=== PATIENT | female | born 1985 | race Caucasian/White ===

== ENCOUNTER 2024-08-18 19:31 | Emergency (ER) | payer OTHER, SELFPAY ==
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
[2024-08-18 19:34] VITALS: BP 147/84; PULSE 104; RESP 16; TEMP 36.6; O2SAT 100
--- OUTSIDE RECORDS SUMMARY | 2024-08-18 19:37 | XMS_ITS | Continuity of Care Document ---
Author Organization [facility] Address [address] [place] [address] [place] [address] Phone Care Team Providers Care Industrial Machine Assembler Name Role Phone Samy Cevallos MD Unavailable Unavailable Allergies, Adverse Reactions, Alerts Substance Reaction Status Criticality No Known Allergies Active No Inform ation Medications Medication Instructions Dosage Effective Dates (start - stop) Status Comments Tylenol-Codeine #3 300 mg-30 mg tablet take 1 tablet by oral route every 6 hours as needed as needed - Active PRN for pain, avoid driving or operate machines Neurontin 300 mg capsule take 1 capsule by oral route 3 times every day 300 MG - Active avoid driving o operate machines cyclobenzaprine 10 mg tablet take 1 tablet by oral route 2 times every day as needed 10 MG - Active PRN for pain , avoid driving or operate machines Procedures Procedure Date PREV VISIT, NEW, AGE 18-39 Advance Directives Directive Yes / No Effective Date File Name No Information Encounters Encounter Description Practice Location Reason(s) For Visit Diagnoses Date Provider Providers Copied on Encounter [facility], [address] [place], [id number], tel:[phone] [facility] No Information Mart Pablo. [address] [facility] [place], [id number], [place]. tel:[phone] PREV VISIT, NEW, AGE 18-39 [facility], [address] [place], [id number], [place] tel:[phone] [facility] Medicine [email or web address] (chief complaint)p sychical (chief complaint) Encntr for general adult medical exam w/o abnormal findings Mart Pablo. [address], [address], [place], [place], [id number], . tel:[phone] Referring Provider: Yanni Fairbanks [address], [place], [place], [id number]. tel:[phone] Family History Family Member Type Diagnosis Age At Onset Father Problem (finding) Alive and well Mother Problem (finding) Alive and well Payers Payer name Insurance type Covered libertarian ID Authoriza tion(s) No Information Social History Type Description Quantity Date Captured Comments Sex Male Smoking Status No Information Chief Complaint And Reason For Visit No Information Plan Of Treatment Date Type Action Status Goal Tobacco cessation counseling completed Goal Special diet education compl eted Referral Ordered: Physical Therapy (related to Encntr for general adult medical exam w/o abnormal findings) ordered Referral Referred To: Physical Therapy Ordered: Referrals: Physical Therapy. Evaluate and treat ordered History Of Present Illness Encounter Date Complaint History Of Prese nt Illness [email or web address] Pt has chronic l ow back pain for 2-3 years. pt initially injured her low back pain from lifting 2016. Pt has been having low back pain since then. Pt c/o bilateral sciatica and also she feels bilateral leg numbness and tingling. pt denies any leg weakness Pt had normal lumbar x ray recently. Pt never did PT. Her insurance keeps denying her MRI due to lack of PT. Pt states that she has 10/10 pain Pt has been taking neurontin and zanaflex but not helping with her pain. Pt had MRi done 2016 which showed L4-5 disc protrusion with mild spinal stenosis. psychical Pt needs annual physical Pt c/o weight gain and chronic low back pain. Pt is not very active pt gained 20-30 pounds during last year Instructions Date Instruction Additional Infor mation Special diet education Related t o Body mass index (BMI) 38.0-38.9, adult Perform monthly self breast examinations. Related to Encntr for general adult medical exam w/o abnormal findings May-09-2019 Quit smoking. Related to Encnt r for general adult medical exam w/o abnormal findings Assessments Type Assessment Date No Information
--- OUTSIDE RECORDS SUMMARY | 2024-08-18 19:37 | XMS_ITS | Clinical Summary ---
Author Organization [facility] Address [address] [place] [address] Phone Care Team Providers Care Baton Twirler Name Role Phone Bebe Mae MD Primary Care Provider [phone] Dot Wagoner APRN, ROAD MARKER Unavailable Allergies No known active allergies Medications No known medications Active Problems Problem Noted Date Diagnosed Date Mild obstructive sleep apnea 03/22/2024 Class 3 severe obesity due t o excess calories without serious comorbidity with body mass index (BMI) of 40.0 to 44.9 in adult 03/22/2024 Snoring 03/22/2024 Personal history of tobacco use 03/22/2024 Social History Tobacco Use Types Packs/Day Years Used Date Smoking Tobacco: Every Day Cigarettes Smokeless Tobacco: Never Tobacco Cessation:Ready to Q uit: No; Counseling Given: No Alcohol Use Standard Drinks/Week Comments No 0 (1 standard drink = 0.6 oz pur e alcohol) Comments No Sex and Gender Information Value Date Recorded Sex Assigned at Female 01/09/2024 11:00 PM LEACH TANK TENDER Legal Sex Female 10:37 PM CDT Gender Identity Female 01/09/2024 11:00 PM LEACH TANK TENDER Sexual Orientation Not on file Last Filed Vital Signs Vital Sign Reading Time Taken Comments Blood Pressure 122/60 03/22/2024 1:37 PM LEACH TANK TENDER Pulse 103 03/22/2024 1:37 PM LEACH TANK TENDER Temperature 36.4 C (97.5 F) 03/22/2024 1:37 PM LEACH TANK TENDER Respiratory Rate 14 03/22/2024 1:37 PM LEACH TANK TENDER Oxygen Saturation 98% 03/22/2024 1:37 PM LEACH TANK TENDER Inhaled Oxygen Concentration - - Weight 112.3 kg (247 lb 8 oz) 03/22/2024 1:37 PM LEACH TANK TENDER Height 165.1 cm (5' 5) 03/22/2024 1:37 PM LEACH TANK TENDER Body Mass Index 41.19 03/22/2024 1:37 PM LEACH TANK TENDER Plan of Treatment Upcoming Encounters Date Type Department Care Team ([facility] st Contact Info) Description 08/23/2024 4:00 PM CDT Office Visit [facility] - Pulmonology & [facility] Medicine - [place] [address] [place] [address] Dot Wagoner, ODELL, ROAD MARKER [address] [address] Health Maintenance Due Date Last Done Comments Hepatitis C Virus (HCV) Screening 1987 Human Papillomavirus (HPV) Immunization (1 - 3-dose series) 2002 Hepatitis B Immunization (1 of 3 - 19+ 3-dose series) 2006 Pneumococcal Immunization Combined (1 of 2 - PCV) 2006 Pap Smear 2008 Cervical Cancer Screening (CCS) 2017 HPV/Cotest 2017 SARS-COV-2 Immunization (1 - season) 2023 Influenza Immunization (Seas on Ended) 2024 12/27/2020, 01/17/2020 Respiratory Syncytial Virus (RSV) Immunization (Adult) (1 - 1-dose 75+ series) 2062 DTaP/Tdap/Td Immunization Discontinued 2022, 03/03/2012 TdaP Immunization Completed 05/13/2022, 03/03/2012 Meningococcal Immunization (ACWY) Aged Out No longer eligible based on patient's age to complete this topic Rotavirus Immunization Aged Out No lo nger eligible based on patient's age to complete this topic Insurance MEDICAID [facility] Care Teams Baton Twirler Relationship Specialty Start Date End Date Bebe Mae MD [address] [address] PCP - General Family Medicine 08/22/22 Dot Wagoner APRN, ROAD MARKER [address] [address] Nurse Practitioner Advanced Practice Nurse 03/22/24
--- OUTSIDE RECORDS SUMMARY | 2024-08-18 19:37 | XMS_ITS | Data Portability ---
Author Organization [facility] Address [address] [place] [address] Care Team Providers Care Chart Picker Name Role Phone BEBE MAE Family Medicine Unavailable Assessment No assessment recorded. Plan of Treatment Reminders Order Date Submit Date Provider Last Modified By Organization Details Last Modified Time Details Appointments ANY 15 2024 02:00P M BEBE MAE MD Not available Not available Not available Lab cytology report, thin prep, smear or scraping, cervical or vaginal 2024 025 [facility], [address] [place] [address], [facility], [place], [address], 06/28/2024 14:47:03 TSH, ultra-sen sitive, serum 2024 025 [facility], [address] [facility], [facility], [place], [address], 06/25/2024 10:43:29 HbA1c (hemoglob in A1c), blood 2024 025 [facility], [address] [place] [address], [facility], [place], [address], 06/25/2024 10:43:30 lipid panel, serum 2024 025 [facility], [address] [facility], [facility], [place], [address], 06/25/2024 10:43:26 CMP, serum or plasma 2024 025 [facility], [address] [facility], [facility], [place], [address], 06/25/2024 10:43:27 CBC 2024 025 [facility], [address] [place] [address] 2, [place], [address], 06/25/2024 10:43:31 Referral dermatolo gist referral - cyst of left jawline; initially started pimple-li ke but has grown to 3mm x 3mm in size in about 3 months; non-tende r and mobile 2023 024 fabricio Crabtree MD, [address] [facility] [address], [place], [address], 05/05/2024 10:14:27 Procedures None recorded. Surgeries None recorded. Imaging home sleep study - snoring with witnessed apneic episodes; [place] [facility] Scale of 1; STOP-BANG score of 3; neck circumfer ence 39.5 cm 2023 024 [facility], [address] [place], [address], 02/18/2024 11:47:23 Medication Orders Zepbound 2.5 mg/0.5 mL subcutane ous pen injector 2024 025 [email or web address] [id number], [address] [place], [address], 06/24/2024 18:23:10 ibuprofen [address] [facility] [id number], [address] [place], [address], 06/03/2024 17:29:07 cyclobenz aprine 5 mg tablet [address] [facility] ([place] [id number], [address] [place], [address], 06/03/2024 17:29:07 acetamino phen ER 650 mg tablet,ex tended release [address] [facility] ([place] [id number], [address] [place], [address], 06/03/2024 17:29:06 nicotine 21 mg/24 hr daily transderm al patch [address] [facility] ([place] [place]acy [facility][id number], [address] [place], [address], 02/02/2024 16:12:12 Patient TargetsNo targets recorded. Patient Instructions Encounter Date Encounter Id Patient Instructions Last Modified By Organization Details Last Modified Time 06/24/2024 [id number] A healthy lifestyle: care instructions [email or web address] Not available 06/24/2024 15:02:54 Reason for Referral [employer] [place] Referral for E pidermoid cyst of skin of face cyst of left jawline; initially started pimple-like but has grown to 3mm x 3mm in size in about 3 months; non-tender and mobile Referring Physician: Bebe Mae, Family Medicine, Encounter Date: 02/02/2024 Results Created Date Observation Date Name Description Value Unit Range Abnormal Flag Note LastModifiedBy Organization Detail LastModifiedTime 05/14/1905/14/2022 HEMOG LOBIN A1C hemoglobin A1C 5.5 % 4.8-5. 6 Predi abete s: 5.7 - 6.4 Diabe bea: >6.4 Glyce jacque contr ol for adult s with diabe bea: <7.0 Not Available [facility] ([facility]) [address] [facility], [place], [address], 05/14/2022 06:37:34 05/14/19 23 05/14/2022 VITAM IN D, 25-HY DROXY vitamin D, 25-hydroxy 19.6 NG/mL 30.0-1 00.0 below low normal Vitam in D defic iency has been defin ed by the Insti tutrufina of Medic ine and an Endoc kermit Navarro ty pract ice guide line as a level of serum 25-OH vitam in D less than 20 ng/mL (1,2) . The Endoc rine Socie ty went on to furth er defin e vitam in D insuf ficie ncy as a level betwe en 21 and 29 ng/mL (2). 1. IOM (Inst itute of Medic ine). 2009. Dieta ry refer ence intromy es for calci um and D. Gulshan kellogg [place]: [employer] [facility] [employer] . 2. Holic k MF, Binkl ey [place], Bisch off-F errar i FITZPATRICK, et al. Evalu ation , treat ment, and preve ntion of vitam in D defic iency : an Endoc [facility]ine [facility] clin[facility] nam pract ice guide line. JCEM. 2010; 96(7) :1911 -30. Not Available [facility] ([facility]) [address] [facility], [place], [address], 05/14/2022 06:37:35 05/14/19 23 05/14/2022 COMP. METAB OLIC PANEL (14) glucose 88 mg/dL 65-99 ANION GP 17.0 mmol/ L N OSMOL 285.0 mOsM/ L N REFER ENCE RANGE : 275.0 -301. 0 Not Available [facility] [address] [place], [address], 05/14/2022 14:36:48 05/14/19 23 05/14/2022 COMP. METAB OLIC PANEL (14) BUN 9 mg/dL 8-26 Not Available [facility] [address] [place], [address], 05/14/2022 14:36:48 05/14/19 23 05/14/2022 COMP. METAB OLIC PANEL (14) creatinine 0.57 mg/dL 0.50-1 .40 Not Available [facility] [address] [place], [address], 05/14/2022 14:36:48 05/14/19 23 05/14/2022 COMP. METAB OLIC PANEL (14) eGFR 121 mL/mi n/1.7 3 >=60 Not Available [facility] [address] [place], [address], 05/14/2022 14:36:48 05/14/19 23 05/14/2022 COMP. METAB OLIC PANEL (14) BUN/creatini ne ratio 15.6 Not Available [facility] [address] [place], [address], 05/14/2022 14:36:48 05/14/19 23 05/14/2022 COMP. METAB OLIC PANEL (14) sodium 144.0 mmol/ L 136.0- 144.0 Not Available [facility] [address] [place] [address], [address], 05/14/2022 14:36:48 05/14/19 23 05/14/2022 COMP. METAB OLIC PANEL (14) potassium 4.4 mmol/ L 3.5-5. 3 Not Available [facility] [address] [place] [address], [address], 05/14/2022 14:36:48 05/14/19 23 05/14/2022 COMP. METAB OLIC PANEL (14) chloride 107 mmol/ l 101-11 1 Not Available [facility] [address] [place] [address], [address], 05/14/2022 14:36:48 05/14/19 23 05/14/2022 COMP. METAB OLIC PANEL (14) carbon dioxide, total 24.9 mmol/ L 21.0-3 2.0 Not Available [facility] [address] [place] [address], [address], 05/14/2022 14:36:48 05/14/19 23 05/14/2022 COMP. METAB OLIC PANEL (14) calcium 9.6 mg/dL 8.2-10 .0 Not Available [facility] [address] [place] [address], [address], 05/14/2022 14:36:48 05/14/19 23 05/14/2022 COMP. METAB OLIC PANEL (14) protein, total 6.8 g/dL 6.7-8. 2 Not Available [facility] [address] [place] [address], [address], 05/14/2022 14:36:48 05/14/19 23 05/14/2022 COMP. METAB OLIC PANEL (14) albumin 4.1 g/dL 3.5-5. 5 Not Available [facility] [address] [place] [address], [address], 05/14/2022 14:36:48 05/14/19 23 05/14/2022 COMP. METAB OLIC PANEL (14) globulin, total 2.7 g/dL 1.5-4. 5 Not Available [facility] [address] [place] [address], [address], 05/14/2022 14:36:48 05/14/19 23 05/14/2022 COMP. METAB OLIC PANEL (14) A/G ratio 1.5 Not Available [facility] [address] [place], [address], 05/14/2022 14:36:48 05/14/19 23 05/14/2022 COMP. METAB OLIC PANEL (14) bilirubin, total 0.2 mg/dL 0.0-1. 2 Not Available [facility] [address] [place] [address], [address], 05/14/2022 14:36:48 05/14/19 23 05/14/2022 COMP. METAB OLIC PANEL (14) alkaline phosphatase 115.4 IU/L 42.0-1 21.0 Not Available [facility] [address] [place] [address], [address], 05/14/2022 14:36:48 05/14/19 23 05/14/2022 COMP. METAB OLIC PANEL (14) AST (SGOT) 15.1 U/L 10.0-4 2.0 Not Available [facility] [address] [place], [address], 05/14/2022 14:36:48 05/14/1905/14/2022 COMP. METAB OLIC PANEL (14) ALT (SGPT) 14.2 U/L 10.0-6 0.0 Not Available [facility] [address] [place], [address], 05/14/2022 14:36:48 05/14/19 23 05/14/2022 CBC WITH DIFFE RENTI AL/PL ATELE T WBC 9.7 K/uL 3.4-10 .8 Not Available [facility] [address] [place], [address], 05/14/2022 14:36:49 05/14/1905/14/2022 CBC WITH DIFFE RENTI AL/PL ATELE T RBC 4.8 M/uL 4.2-5. 4 Not Available [facility] [address] [place], [address], 05/14/2022 14:36:49 05/14/1905/14/2022 CBC WITH DIFFE RENTI AL/PL ATELE T hemoglobin 12.5 g/dL 11.5-1 5.5 Not Available [facility] [address] [place], [address], 05/14/2022 14:36:49 05/14/1905/14/2022 CBC WITH DIFFE RENTI AL/PL ATELE T hematocrit 40.9 % 36.0-4 8.0 Not Available [facility] [address] [place], [address], 05/14/2022 14:36:49 05/14/1905/14/2022 CBC WITH DIFFE RENTI AL/PL ATELE T MCV 85 fL 80-95 Not Available [facility] [address] [place], [address], 05/14/2022 14:36:49 05/14/1905/14/2022 CBC WITH DIFFE RENTI AL/PL ATELE T MCH 26 pg 27-32 below low normal Not Available [facility] [address] [place], [address], 05/14/2022 14:36:49 05/14/1905/14/2022 CBC WITH DIFFE RENTI AL/PL ATELE T MCHC 31 g/dL 32-36 below low normal Not Available [facility] [address] [place], [address], 05/14/2022 14:36:49 05/14/1905/14/2022 CBC WITH DIFFE RENTI AL/PL ATELE T RDW 14.5 % 11.5-1 4.5 Not Available [facility] [address] [place], [address], 05/14/2022 14:36:49 05/14/1905/14/2022 CBC WITH DIFFE RENTI AL/PL ATELE T platelets 364 K/uL 155-37 9 MPV 10.1 FL 8.9-1 2.7 N Not Available [facility] [address] [place], [address], 05/14/2022 14:36:49 05/14/1905/14/2022 CBC WITH DIFFE RENTI AL/PL ATELE T neutrophils 61.1 % 40.0-7 4.0 Not Available [facility] [address] [place], [address], 05/14/2022 14:36:49 05/14/1905/14/2022 CBC WITH DIFFE RENTI AL/PL ATELE T lymphs 22.6 % 14.0-4 6.0 Not Available [facility] [address] [place], [address], 05/14/2022 14:36:49 05/14/1905/14/2022 CBC WITH DIFFE RENTI AL/PL ATELE T monocytes 8.8 % 4.0-12 .0 Not Available [facility] [address] [place], [address], 05/14/2022 14:36:49 05/14/19 23 05/14/2022 CBC WITH DIFFE RENTI AL/PL ATELE T eos 6 % 0-5 above high normal Not Available [facility] [address] [place], [address], 05/14/2022 14:36:49 05/14/19 23 05/14/2022 CBC WITH DIFFE RENTI AL/PL ATELE T basos 0.7 % 0.0-1. 0 Not Available [facility] [address] [place], [address], 05/14/2022 14:36:49 05/14/19 23 05/14/2022 CBC WITH DIFFE RENTI AL/PL ATELE T neutrophils (absolute) 5.9 K/uL 1.4-7. 0 Not Available [facility] [address] [place], [address], 05/14/2022 14:36:49 05/14/19 23 05/14/2022 CBC WITH DIFFE RENTI AL/PL ATELE T lymphs (absolute) 2.2 K/uL 0.7-3. 1 Not Available [facility] [address] [place], [address], 05/14/2022 14:36:49 05/14/19 23 05/14/2022 CBC WITH DIFFE RENTI AL/PL ATELE T monocytes(ab solute) 0.9 K/uL 0.1-0. 9 Not Available [facility] [address] [place], [address], 05/14/2022 14:36:49 05/14/19 23 05/14/2022 CBC WITH DIFFE RENTI AL/PL ATELE T eos (absolute) 0.6 K/uL 0.0-0. 4 above high normal Not Available [facility] [address] [place], [address], 05/14/2022 14:36:49 05/14/1905/14/2022 CBC WITH DIFFE RENTI AL/PL ATELE T baso (absolute) 0.1 K/uL 0.0-0. 3 Not Available [facility] [address] [place], [address], 05/14/2022 14:36:49 05/14/19 23 05/14/2022 CBC WITH DIFFE RENTI AL/PL ATELE T immature granulocytes 1.1 % Not Available [facility] [address] [place], [address], 05/14/2022 14:36:49 05/14/19 23 05/14/2022 CBC WITH DIFFE RENTI AL/PL ATELE T immature grans (abs) 0.1 K/uL Not Available [facility] [address] [place], [address], 05/14/2022 14:36:49 05/14/1905/14/2022 CBC WITH DIFFE RENTI AL/PL ATELE T NRBC 0 % Not Available [facility] [address] [place], [address], 05/14/2022 14:36:49 05/14/1905/14/2022 LIPID PANEL cholesterol, total 168.8 mg/dL 140.0- 200.0 Not Available [facility] [address] [place], [address], 05/14/2022 14:36:48 05/14/1905/14/2022 LIPID PANEL triglyceride s 229 mg/dL <=150 above high normal Not Available [facility] [address] [place], [address], 05/14/2022 14:36:48 05/14/1905/14/2022 LIPID PANEL HDL cholesterol 30.9 mg/dL 40.0-1 00.0 below low normal Not Available [facility] [address] [place], [address], 05/14/2022 14:36:48 05/14/19 23 05/14/2022 LIPID PANEL VLDL cholesterol nam 45.80 mg/dL 5.00-4 0.00 above high normal Not Available [facility] [address] [place], [address], 05/14/2022 14:36:48 05/14/1905/14/2022 LIPID PANEL LDL chol calc ([facility]) 98.5 Not Available [facility] [address] [place], [address], 05/14/2022 14:36:48 05/14/1905/15/2022 IGP, APTIM A HPV, RFX 16/18 ,45 HPV aptima Positi ve negati ve abnormal This nucle ic acid ampli ficat ion test detec ts fourt een high- risk HPV types (16,1 8,31, 33,35 ,39,4 5,51, 52,56 ,58,5 9,66, 68) witho ut diffe renti ation . Not Available [facility] ([facility]) [address] [facility], [place], [address], 05/23/2022 16:02:05 05/14/1905/17/2022 IGP, APTIM A HPV, RFX 16/18 ,45 diagnosis: Commen t NEGAT RILEY FOR INTRA EPITH ELIAL GAVIN Matt OR LEYDI STEIN . Not Available [facility] ([facility]) [address] [facility], [place], [address], 05/23/2022 16:02:05 05/14/19 23 05/17/2022 IGP, APTIM A HPV, RFX 16/18 ,45 specimen adequacy: Commen t Satis facto ry for evalu ation . Endoc ervic al and/o r squam ous metap lasti c cells (endo cervi nam compo nent) are prese nt. Not Available [facility] ([facility]) [address] [place], [address], 05/23/2022 16:02:05 05/14/1905/17/2022 IGP, APTIM A HPV, RFX 16/18 ,45 clinician provided ICD10: Nery gray Z00.0 0 Z12.4 Z68.4 1 Not Available [facility] ([facility]) [address] [place], [address], 05/23/2022 16:02:05 05/14/1905/17/2022 IGP, APTIM A HPV, RFX 16/18 ,45 performed by: Clarita Hannah Not Available [facility] ([facility]) [address] [place], [address], 05/23/2022 16:02:05 05/14/1905/17/2022 IGP, APTIM A HPV, RFX 16/18 ,45 . . Not Available [facility] ([facility]) [address] [place], [address], 05/23/2022 16:02:05 05/14/1905/17/2022 IGP, APTIM A HPV, RFX 16/18 ,45 note: Nery gray The Pap smear is a scree madan test desig seth to aid in the detec tion of tonia ligna nt and malig nant condi tions of the uteri ne cervi x. It is not a diagn ostic proce dure and shoul d not be used as the sole means of detec ting cervi nam cance r. Both false -posi tive and false -nega tive repor ts do occur . Not Available [facility] ([facility]) [address] [place], [address], 05/23/2022 16:02:05 05/14/19 23 05/17/2022 IGP, APTIM A HPV, RFX 16/18 ,45 test methodology: Nery Cantu liqui d based ThinP rep(R ) pap test was scree seth with the use of an image guide kimberly jefferson. Not Available [facility] ([facility]) [address] [place], [address], 05/23/2022 16:02:05 05/14/19 23 05/17/2022 IGP, APTIM A HPV, RFX 16/18 ,45 HPV genotype reflex Commen t Ricky malhotra met, see HPV Genot ype resul ts. Not Available [facility] ([facility]) [address] [place], [address], 05/23/2022 16:02:05 05/14/19 23 05/20/2022 HPV GENOT YPES 16/18 ,45 HPV genotype 16 Negati ve negati ve Not Available [facility] ([facility]) [address] [place], [address], 05/23/2022 16:02:06 05/14/19 23 05/20/2022 HPV GENOT YPES 16/18 ,45 HPV genotype 18,45 Negati ve negati ve Not Available [facility] ([facility]) [address] [place], [address], 05/23/2022 16:02:06 09/18/1909/18/2022 VITAM IN D, 25-HY DROXY vitamin D, 25-hydroxy 31.3 NG/mL 30.0-1 00.0 Vitam in D defic iency has been defin ed by the Insti tutrufina of Medic ine and an Endoc rine Socie ty pract ice guide line as a level of serum 25-OH vitam in D less than 20 ng/mL (1,2) . The Endoc rine Socie ty went on to fur er defin e vitam in D insuf ficie ncy as a level betwe en 21 and 29 ng/mL (2). 1. IOM (Inst itute of Medic ine). 2010. Dieta ry refer ence luis es for calci um and D. Gulshan kellogg [place]: [employer] . 2. Federico k MF, Binkl ey [place], Bisch off-F errar i FITZPATRICK, et al. Evalu ation , treat ment, and preve ntion of vitam in D defic iency : an Endoc rine Socie ty clini nam pract ice guide line. JCEM. 2010; 96(7) :1911 -30. Not Available [facility] ([facility]) [address] [place], [address], 09/18/2022 06:37:28 06/25/19 25 06/25/2024 LIPID PANEL cholesterol, total 186 mg/dL 100-19 9 Not Available [facility] ([facility]) [address] [place], [address], 06/25/2024 10:43:26 06/25/19 25 06/25/2024 LIPID PANEL triglyceride s 134 mg/dL 0-149 Not Available [facility] [address] [place], [address], 06/25/2024 10:43:26 06/25/19 25 06/25/2024 LIPID PANEL HDL cholesterol 43 mg/dL >39 Not Available [facility] [address] [place], [address], 06/25/2024 10:43:26 06/25/19 25 06/25/2024 LIPID PANEL VLDL cholesterol nam 24 mg/dL 5-40 Not Available [facility] [address] [place], [address], 06/25/2024 10:43:26 06/25/19 25 06/25/2024 LIPID PANEL LDL chol calc ([facility]) 119 mg/dL 0-99 above high normal Not Available [facility] ([facility]) [address] [place], [address], 06/25/2024 10:43:26 06/25/19 25 06/25/2024 COMP. METAB OLIC PANEL (14) glucose 97 mg/dL 70-99 Not Available [facility] ([facility]) [address] [place], [address], 06/25/2024 10:43:27 06/25/19 25 06/25/2024 COMP. METAB OLIC PANEL (14) BUN 13 mg/dL 6-20 Not Available [facility] ([facility]) [address] [place], [address], 06/25/2024 10:43:27 06/25/19 25 06/25/2024 COMP. METAB OLIC PANEL (14) creatinine 0.58 mg/dL 0.57-1 .00 Not Available [facility] ([facility]) [address] [place], [address], 06/25/2024 10:43:27 06/25/19 25 06/25/2024 COMP. METAB OLIC PANEL (14) eGFR 119 mL/mi n/1.7 3 >59 Not Available [facility] ([facility]) [address] [place], [address], 06/25/2024 10:43:27 06/25/19 25 06/25/2024 COMP. METAB OLIC PANEL (14) BUN/creatini ne ratio 22 9-23 Not Available [facility] [address] [place], [address], 06/25/2024 10:43:27 06/25/19 25 06/25/2024 COMP. METAB OLIC PANEL (14) sodium 141 mmol/ L 134-14 4 Not Available [facility] ([facility]) [address] [place], [address], 06/25/2024 10:43:27 06/25/19 25 06/25/2024 COMP. METAB OLIC PANEL (14) potassium 4.1 mmol/ L 3.5-5. 2 Not Available [facility] ([facility]) [address] [facility], [place], [address], 06/25/2024 10:43:27 06/25/19 25 06/25/2024 COMP. METAB OLIC PANEL (14) chloride 104 mmol/ L 96-106 Not Available [facility] ([facility]) [address] [facility], [place], [address], 06/25/2024 10:43:27 06/25/19 25 06/25/2024 COMP. METAB OLIC PANEL (14) carbon dioxide, total 21 mmol/ L 20-29 Not Available [facility] ([facility]) [address] [facility] [place], [address], 06/25/2024 10:43:27 06/25/19 25 06/25/2024 COMP. METAB OLIC PANEL (14) calcium 9.5 mg/dL 8.7-10 .2 Not Available [facility] ([facility]) [address] [place], [address], 06/25/2024 10:43:27 06/25/19 25 06/25/2024 COMP. METAB OLIC PANEL (14) protein, total 6.7 g/dL 6.0-8. 5 Not Available [facility] ([facility]) [address] [facility] [place], [address], 06/25/2024 10:43:27 06/25/19 25 06/25/2024 COMP. METAB OLIC PANEL (14) albumin 4.3 g/dL 3.9-4. 9 Not Available [facility] ([facility]) [address] [place], [address], 06/25/2024 10:43:27 06/25/19 25 06/25/2024 COMP. METAB OLIC PANEL (14) globulin, total 2.4 g/dL 1.5-4. 5 Not Available [facility] ([facility]) [address] [place], [address], 06/25/2024 10:43:27 06/25/19 25 06/25/2024 COMP. METAB OLIC PANEL (14) bilirubin, total <0.2 mg/dL 0.0-1. 2 Not Available [facility] ([facility]) [address] [place], [address], 06/25/2024 10:43:27 06/25/1906/25/2024 COMP. METAB OLIC PANEL (14) alkaline phosphatase 143 IU/L 44-121 above high normal Not Available [facility] ([facility]) [address] [place], [address], 06/25/2024 10:43:27 06/25/19 25 06/25/2024 COMP. METAB OLIC PANEL (14) AST (SGOT) 18 IU/L 0-40 Not Available [facility] ([facility]) [address] [place], [address], 06/25/2024 10:43:27 06/25/19 25 06/25/2024 COMP. METAB OLIC PANEL (14) ALT (SGPT) 15 IU/L 0-32 Not Available [facility] ([facility]) [address] [place], [address], 06/25/2024 10:43:27 06/25/19 25 06/25/2024 TSH RFX ON ABNOR MAL TO FREE T4 TSH 3.480 uIU/m L 0.450- 4.500 Not Available [facility] ([facility]) [address] [place], [address], 06/25/2024 10:43:29 06/25/19 25 06/25/2024 HEMOG LOBIN A1C hemoglobin A1C 5.6 % 4.8-5. 6 Predi abete s: 5.7 - 6.4 Diabe bea: >6.4 Glyce jacque contr ol for adult s with diabe bea: <7.0 Not Available [facility] ([facility]) [address] [facility], [place], [address], 06/25/2024 10:43:30 06/25/1906/25/2024 CBC, PLATE LET, NO DIFFE RENTI AL WBC 10.5 x10e3 /uL 3.4-10 .8 Not Available [facility] ([facility]) [address] [facility], [place], [address], 06/25/2024 10:43:31 06/25/1906/25/2024 CBC, PLATE LET, NO DIFFE RENTI AL RBC 4.44 x10e6 /uL 3.77-5 .28 Not Available [facility] ([facility]) [address] [facility], [place], [address], 06/25/2024 10:43:31 06/25/1906/25/2024 CBC, PLATE LET, NO DIFFE RENTI AL hemoglobin 11.8 g/dL 11.1-1 5.9 Not Available [facility] ([facility]) [address] [facility], [place], [address], 06/25/2024 10:43:31 06/25/1906/25/2024 CBC, PLATE LET, NO DIFFE RENTI AL hematocrit 37.3 % 34.0-4 6.6 Not Available [facility] ([facility]) [address] [place], [address], 06/25/2024 10:43:31 06/25/1906/25/2024 CBC, PLATE LET, NO DIFFE RENTI AL MCV 84 fL 79-97 Not Available [facility] ([facility]) [address] [place], [address], 06/25/2024 10:43:31 06/25/19 25 06/25/2024 CBC, PLATE LET, NO DIFFE RENTI AL MCH 26.6 pg 26.6-3 3.0 Not Available [facility] ([facility]) [address] [place], [address], 06/25/2024 10:43:31 06/25/1906/25/2024 CBC, PLATE LET, NO DIFFE RENTI AL MCHC 31.6 g/dL 31.5-3 5.7 Not Available [facility] ([facility]) [address] [place], [address], 06/25/2024 10:43:31 06/25/1906/25/2024 CBC, PLATE LET, NO DIFFE RENTI AL RDW 13.8 % 11.7-1 5.4 Not Available [facility] ([facility]) [address] [place], [address], 06/25/2024 10:43:31 06/25/19 25 06/25/2024 CBC, PLATE LET, NO DIFFE RENTI AL platelets 366 x10e3 /uL 150-45 0 Not Available [facility] ([facility]) [address] [place], [address], 06/25/2024 10:43:31 06/25/1906/25/2024 IGP, APTIM A HPV, RFX 16/18 ,45 HPV aptima NEGATI VE negati ve This nucle ic acid ampli ficat ion test detec ts fourt een high- risk HPV types (16,1 8,31, 33,35 ,39,4 5,51, 52,56 ,58,5 9,66, 68) witho ut diffe renti ation . Not Available [facility] ([facility]) [address] [place], [address], 06/28/2024 14:47:03 06/25/1906/28/2024 IGP, APTIM A HPV, RFX 16/18 ,45 diagnosis: NERY RABAGO RILEY FOR INTRA EPITH ELIAL LESIO N OR LEYDI STEIN . Not Available [facility] ([facility]) [address] [place], [address], 06/28/2024 14:47:03 06/25/19 25 06/28/2024 IGP, APTIM A HPV, RFX 16/18 ,45 specimen adequacy: NERY Gray Satis facto ry for evalu ation . Endoc ervic al and/o r squam ous metap lasti c cells (endo cervi nam compo nent) are prese nt. Not Available [facility] ([facility]) [address] [place], [address], 06/28/2024 14:47:03 06/25/19 25 06/28/2024 IGP, APTIM A HPV, RFX 16/18 ,45 clinician provided ICD10: NERY Gray Z00.0 0 E66.8 12 Z12.4 Not Available [facility] ([facility]) [address] [place], [address], 06/28/2024 14:47:03 06/25/19 25 06/28/2024 IGP, APTIM A HPV, RFX 16/18 ,45 performed by: NERY De La Fuente and-Rosalind buenrostro , Cytol ogist (ASCP ) Not Available [facility] ([facility]) [address] [place], [address], 06/28/2024 14:47:03 06/25/19 25 06/28/2024 IGP, APTIM A HPV, RFX 16/18 ,45 . . Not Available [facility] ([facility]) [address] [place], [address], 06/28/2024 14:47:03 06/25/19 25 06/28/2024 IGP, APTIM A HPV, RFX 16/18 ,45 note: COMMEN T The Pap smear is a scree madan test desig seth to aid in the detec tion of tonia ligna nt and malig nant condi tions of the uteri ne cervi x. It is not a diagn ostic proce dure and shoul d not be used as the sole means of detec ting cervi nam cance r. Both false -posi tive and false -nega tive repor ts do occur . Not Available [facility] ([facility]) [address] [facility], [place], [address], 06/28/2024 14:47:03 06/25/1906/28/2024 IGP, APTIM A HPV, RFX 16/18 ,45 test methodology: NERY T This liqui d based ThinP rep(R ) pap test was scree seth with the use of an image guide d systrufina m. Not Available [facility] ([facility]) [address] [facility], [place], [address], 06/28/2024 14:47:03 06/25/19 25 06/28/2024 IGP, APTIM A HPV, RFX 16/18 ,45 HPV genotype reflex COMMEN T Crite marya not met, HPV Genot ype not perfo rmed. Not Available [facility] ([facility]) [address] [place], [address], 06/28/2024 14:47:03 02/18/20 24 02/18/2024 home sleep study No observ ation record ed. [facility] [address] [place], [address], 02/25/2024 13:38:24 Result Notes None recorded. Problems Name Problem SNOMED Code Status Onset Date Resolution Date Notes Provider Name and Address Organization Details Recorded Time Mixed anxiety and depressi ve disorder 404956423 Active 2017 doing fine without med Not Available [facility] 12:16:57 Chronic pain 52412635 Completed 201705/18/2018 Lowell Cai MD Attn: Accounting ,[address] [facility], [place], [address] , [place] [facility] 9 11:47:34 Smoker 77049123 Active 2017 BEBE MAE MD Attn: Accounting ,[address] [place], [address] , [facility] 3 16:19:02 Chronic back pain 301151253 Active 2018 Not Available [facility] 12:16:57 Menorrha chai 708774625 Active 2022 BEBE MAE MD Attn: Accounting ,[address] [place], [address] , [facility] - [facility] 3 16:18:58 Body mass index 40+ - severely obese 407838813 Active 2022 BEBE MAE MD Attn: Accounting ,[address] [place], [address] , [facility] - [facility] 3 16:18:56 Vitamin D deficien cy 29175181 Active 2022 BEBE MAE MD Attn: Accounting ,[address] [place], [address] , [facility] - [facility] 3 09:30:45 Human papillom avirus deoxyrib onucleic acid detected , high risk on cervical specimen 610588392 Active 2022 Repeat HPV testing in May 2023. BEBE MAE MD Attn: Accounting ,[address] [place], [address] , [place] [facility] 3 17:03:10 Problem Notes None recorded. Procedures Surgical History Date Name Laterality Status Provider Name and Address Organization Details Recorded Time 06/18/19 Suture/Staple removal completed BEBE MAE MD Attn: Accounting, [address] [place], [address], [place] [facility] 06/17/2022 15:54:29 05/29/19 Excision and closure completed BEBE MAE MD Attn: Accounting, [address] [facility], [place], [address], [place] [facility] 05/29/2022 20:27:29 12/26/19 13 Date of Last Pap Smear completed Mk Oleary RN [facility] 08/18/2017 15:08:53 03/03/19 11 Tubal Ligation completed Karen [facility] 08/14/2017 14:17:14 Cholecystectomy completed [facility] 08/14/2017 14:16:58 Imaging Results None recorded. Procedure Notes None recorded. Medical Equipment None Reported. Allergies No known drug allergies Medications Name Sig Start Date Stop Date Status Note LastModified by Organization Details LastModified Time venlafaxin e ER 75 mg capsule,ex tended release 24 hr Take 1 capsule every day by oral route. 05/18 completed Not Available Not Available Not Available ibuprofen 800 mg tablet TAKE 1 TABLET EVERY 8 HOURS BY ORAL ROUTE WITH MEAL(S) FOR 14 DAYS, FOR BACK PAIN. active Not Available Not Available No t Available ofloxacin 0.3 % eye drops INSTILL 1 DROP INTO AFFECTED EYE 4 TIMES A DAY 02/13 completed Not using Not Available Not Available Not Available tizanidine 4 mg tablet TAKE 1 TABLET BY MOUTH TWICE A DAY 05/13 completed Not Available Not Available Not Available benzonatat e 200 mg capsule TAKE 1 ORAL CAPSULE UP TO 3 TIMES A DAY NEEDED FOR COUGH. 02/01 completed Not Available Not Available Not Available hydrocodon e 5 mg-acetami nophen 325 mg tablet 08/14 completed Not Available Not Available Not Available meloxicam 15 mg tablet Take 1 tablet every day by oral route as needed. 05/13 completed Not Available Not Available Not Available sulfametho xazole 800 mg-trimeth oprim 160 mg tablet TAKE 1 TABLET BY MOUTH EVERY 12 HOURS FOR 7 DAYS 02/01 completed Not Available Not Available Not Available acetaminop hen ER 650 mg tablet,ext ended release Take 1 tablet every 8 hours by oral route for 14 days, for back pain. 2024 active Not Available Not Available Not Avai lable nicotine 21 mg/24 hr daily transderma l patch Apply 1 patch every day by transderm al route. active Not Available Not Available No t Available gabapentin 300 mg capsule Take 1 capsule every day by oral route at bedtime. 05/13 completed Not Available Not Available Not Available ergocalcif rain (vitamin D2) 1,250 mcg (50,000 unit) capsule TAKE 1 CAPSULE EVERY WEEK BY ORAL ROUTE. 02/01 completed Not Available Not Available Not Available lotepredno l etabonate 0.5 % eye drops,susp ension INSTILL 1 DROP INTO AFFECTED EYE 4 TIMES A DAY 02/13 completed not using Not Available Not Available Not Available methylpred nisolone 4 mg tablets in a dose pack TAKE 6 TABLETS ON DAY 1 DIRECTED ON PACKAGE AND DECREASE BY 1 TAB EACH DAY FOR A TOTAL OF 6 DAYS 02/01 completed Not Available Not Available Not Available naproxen 500 mg tablet TAKE 1 TABLET BY MOUTH EVERY 12 HOURS NEEDED 05/13 completed Not Available Not Available Not Available amoxicilli n 875 mg-potassi um clavulanat e 125 mg tablet TAKE 1 TABLET BY MOUTH TWICE A DAY FOR 7 DAYS 02/01 completed Not Available Not Available Not Available cyclobenza geovani 5 mg tablet TAKE 1 TABLET 3 TIMES A DAY BY ORAL ROUTE NEEDED FOR 14 DAYS, FOR BACK PAIN. active Not Available Not Available No t Available chlorhexid ine gluconate 0.12 % mouthwash SWISH FOR 30 SECONDS AND SPIT OUT 15 MUCOUS MEMBRANE MILLILITE RS TWICE A DAY AFTER BRUSHING TEETH. 02/01 completed Not Available Not Available Not Available Fluarix Quad (PF) 60 mcg (15 mcg x 4)/0.5 mL IM syringe ADM 0.5ML IM UTD 05/13 completed Not Available Not Available Not Available Zepbound 2.5 mg/0.5 mL subcutaneo us pen injector INJECT 2.5 MG EVERY WEEK BY SUBCUTANE OUS ROUTE FOR 28 DAYS, FOR SLEEP APNEA. 2024 active Not Available Not Available Not Avai lable Vitals Date Recorded Body height Body mass index (BMI) Body weight Body temperature Oxygen saturation Oxygen saturation in Arterial blood by Pulse oximetry Heart rate Systolic blood pressure Diastolic blood pressure Provider Name and Address Organization Details Last Updated DateTime 3 161.29 cm 43.1 kg/m2 735220. 37 g 97.7 [degF] 96 % 96 % 88 /min 103 mm[Hg] 72 mm[Hg] Felicitas Braga MA [facility] 3 15:33:07 Date Recorded Body height Body mass index (BMI) Body weight Oxygen saturation Oxygen saturation in Arterial blood by Pulse oximetry Heart rate Body temperature Respiratory rate Systolic blood pressure Diastolic blood pressure Provider Name and Address Organization Details Last Updated DateTime 5 165.1 cm 38.9 kg/m2 233358. 61 g 100 % 100 % 110 /min 98.6 [degF] 24 /min 127 mm[Hg] 78 mm[Hg] Dafne Loja MA [facility] 5 16:36:00 Date Recorded Body height Body mass index (BMI) Body weight Body temperature Oxygen saturation Oxygen saturation in Arterial blood by Pulse oximetry Heart rate Systolic blood pressure Diastolic blood pressure Provider Name and Address Organization Details Last Updated DateTime 3 161.29 cm 42.9 kg/m2 198201. 07 g 97.8 [degF] 98 % 98 % 84 /min 107 mm[Hg] 71 mm[Hg] Dafne Child MA [facility] 3 15:44:29 Date Recorded Body height Body mass index (BMI) Body weight Oxygen saturation Oxygen saturation in Arterial blood by Pulse oximetry Heart rate Body temperature Respiratory rate Systolic blood pressure Diastolic blood pressure Provider Name and Address Organization Details Last Updated DateTime 5 165.1 cm 39.4 kg/m2 037577. 39 g 98 % 98 % 101 /min 98.5 [degF] 20 /min 114 mm[Hg] 73 mm[Hg] Dafne Loja MA [facility] 5 14:31:59 Date Recorded Body weight Body mass index (BMI) Body height Oxygen saturation Oxygen saturation in Arterial blood by Pulse oximetry Heart rate Body temperature Systolic blood pressure Diastolic blood pressure Provider Name and Address Organization Details Last Updated DateTime 4 809668. 23 g 40.8 kg/m2 165.1 cm 98 % 98 % 88 /min 98.4 [degF] 109 mm[Hg] 75 mm[Hg] Dafne Loja MA [facility] 4 15:49:45 Social History Question Answer Notes LastModified by Organizat ion Details LastModified Time Tobacco Smoking Status Current Every Day Smoker Karen Luna [facility], [place] - [facility] 08/14/2017 14:13:19 Do You Have An Advance Directive? No [email or web address] Information not available 08/18/2017 Are You Blind Or Do You Have Difficulty Seeing? No Information not available 05/13/2022 What Is Your Level Of Caffeine Consumption? Heavy Coffee Daily Energy Drinks On The Weekend Information not available 05/13/2022 How Much Tobacco Do You Chew? None Information not available 08/14/2017 In The 14 Days Before Symptom Onset, Have You Had Close Contact With A Laboratory-confir med COVID-19 While That Case Was Ill? No Information not available 02/14/2020 In The 14 Days Before Symptom Onset, Have You Had Close Contact With A Person Who Is Under Investigation For COVID-19 While That Person Was Ill? No Information not available 02/14/2020 Have You Been To An Area Known To Be High Risk For COVID-19? No Information not available 02/14/2020 Are You Deaf Or Do You Have Serious Difficulty Hearing? No Information not available 05/13/2022 What Type Of Diet Are You Following? REGULAR Information not available 08/14/2017 Which Illicit Or Recreational Drugs Have You Used? Denies Information not available 08/14/2017 Education 11 Information no t available 08/14/2017 Are There Any Guns Present In Your Home? No Information not available 05/13/2022 Hard Of Hearing Or Deaf In One Or Both Ears? No [email or web address] Information not available 08/18/2017 Legally Blind In One Or Both Eyes? No [email or web address] Information no t available 08/18/2017 Marital Status Single Informatio n not available 05/13/2022 What Was The Date Of Your Most Recent Tobacco Screening? 06/03/2024 Information not available 06/03/2024 How Many Children Do You Have? 3 Information not available 05/13/2022 What Is Your Current Pack Years? 20-29packye ars Information not available 05/13/2022 Performs Monthly Self-breast Exam? Yes [email or web address] Information no t available 08/18/2017 Do You Use Protection During Sex? No Information not available 05/13/2022 What Is Your Relationship Status? Single Information not available 05/13/2022 Do You Use Your Seat Belt Or Car Seat Routinely? Yes Information not available 05/13/2022 Seat Belts Used Routinely Yes [email or web address] Information not available 08/18/2017 Are You Sexually Active? Yes Information not available 05/13/2022 Smoke Alarm In Home Yes Information not available 08/18/2017 Do You Have Smoke And Carbon Monoxide Detectors In Your Home? Yes Information not available 05/13/2022 At What Age Did You Start Smoking Tobacco? 16 Information not available 08/14/2017 Are You Passively Exposed To Smoke? Yes Information no t available 05/13/2022 How Much Tobacco Do You Smoke? 1 PPD Pack And A Half Daily Information not available 02/02/2024 General Stress Level High Information not available 02/14/2020 Do You Use Sunscreen Routinely? Yes [email or web address] Information not available 08/18/2017 Has Tobacco Cessation Counseling Been Provided? Yes Information not available 05/13/2022 On What Date Was Tobacco Cessation Counseling Provided? 06/03/2024 Information not available 06/03/2024 How Many Years Have You Smoked Tobacco? 21 Information not available 05/13/2022 Sex: Female Functional Status Question Answer Note LastModified by Organizat ion Details LastModified Time Do you use any illicit or recreational drugs? No Information not available 05/13/2022 Do you or have you ever used any other forms of tobacco or nicotine? Yes Information not available 05/13/2022 What is your level of alcohol consumption? Occasional Information not available 05/13/2022 Do you or have you ever used smokeless tobacco? Never used smokeless tobacco Information not available 02/14/2020 Are you currently employed? Yes Information not available 05/13/2022 Are you able to care for yourself? Yes Information not available 05/13/2022 What is your occupation? [employer] Information not available 05/13/2022 Do you or have you ever used e-cigarettes or vape? Former user of electronic cigarettes Information not available 05/13/2022 What is your exercise level? None Information not available 05/13/2022 Mental Status Question Answer Note LastModified by Organization D etails LastModified Time Do you feel stressed (tense, restless, nervous, or anxious, or unable to sleep at night)? SN2976-4 [email or web address] Information not available 06/17/2022 Family History Relationship Description Onset Age of this Age Resolved Age Notes LastModified by Organization Details LastModified Time Maternal Grandmother Malignant neoplasm of lung Not available 2017 14:12:11 Maternal Grandfather Heart disease Not available 2017 14:12:26 Unspecified Relation Malignant tumor of cervix Mother 's side Not available 08/14/2017 14:13:08 Medical History Condition Response Coronary Artery Disease N Other N Atrial Fibrillation N High Blood Pressure N Thyroid Problems N Kidney or Bladder Problems N Depression N COPD N Blood Clots N GI Problems N Skin Problems N Eating Disorder N Anemia N Heart Attack (MD) N Diabetes N Anxiety Disorder Y Muscle, Joint, or Bone Problems N Seizures/Epilepsy N Acid Reflux (GERD) N Cancer N Stroke N Allergies Y Asthma N ADHD N Substance Abuse N High Cholesterol N Hepatitis N Liver Disease N Schizophrenia N Headaches N Osteoporosis N Heart Failure N Gynecological History Statement/Question Response Abnormal Pap Y Flow Heavy Date of LMP 05/19/2024 STIs/STDs N HPV Vaccine N Duration of Flow (days) 5 Age at Menarche 13 Current Control Method Tubal Ligat ion Age at First Child 21 Frequency of Cycle (Q days) 30 Sexually Active? Y Menses Monthly Y Date of Last Pap Smear 12/25/2012 Sexual Problems? N LMP Approximate Obstetrics History GPAL:G 3 P 3 0 0 3 Type Value Multiple Births 0 Full Term 3 Induced 0 Spontaneous 0 Premature 0 Living 3 Ectopics 0 Total 3 Immunizations Vaccine Type Date Status Note Provider Nam e and Address Organization Details Recorded Time Influenza, split virus, quadrivalent, preservative 0 completed BEBE MAE MD Attn: Accounting,[address], [place], [address], [place] [facility] 06/24/2024 18:21:50 Influenza, split virus, quadrivalent, PF 1 completed BEBE MAE MD Attn: Accounting,[address], [place], [address], [place] [facility] 06/24/2024 18:21:50 Tdap 3 completed Felicitas Braga MA null, [place] [facility] 05/13/2022 16:30:47 Tdap 3 completed BEBE MAE MD Attn: Accounting,[address], [place], [address], [place] [facility] 05/13/2022 15:55:10 Past Encounters Encounter ID Performer Location Encounter Start Date Encounter Closed Date Diagnosis/Indication Diagnosis SNOMED-CT Code Diagnosis ICD10 Code Diagnosis Note [id number] MD Amber Vela (Adult Med) [address] [place] [address] 08/14/2017 13:39:05 08/18/2017 08:57:12 Mixed anxiety and depressive disorder 803820952 F41.8 start pt on venlafaxin eRefer to psychiatri st as wellpt is willing to see therapist Smoker 98646999 F17.200 Chronic back pain 357108 002 G89.29 check imagingpt was evaluated by back specialist and h/o back injury at work 2 yrs ago and had settled case per pt [id number] MD Amber Vela (Adult Med) [address] [place] [address] 11/12/2017 11:37:46 11/12/2017 15:02:46 Chronic pain 79781595 G89.29 pt did not do xray yet Mixed anxi ety and depressive disorder 190209107 F41.8 pt is noncomplia nt with venlafaxin eRefered to psychiatri st as well -did not see one yetpt did not make apt with therapist yet Chronic back pain 586760 002 G89.29 pt to bring old MRI report and pt to go for xraypt was evaluated by back specialist and h/o back injury at work 2 yrs ago and had settled case per pt [id number] MD Mirian Velahalto (Adult Med) [address] [place] [address] 05/18/2018 11:31:24 05/19/2018 09:50:49 Chronic back pain 016859541 G89.29 Had MRI in 2016 which showed small l4-5 central protrusion with mild spinal stenosis . Pt was evaluated by back specialist and h/o back injury at work 2 yrs ago and had settled case per ptpt declined to go for PT / xray -okAdd Tizanidine with mobic /gabapenti n Obesity 988481403 E66.09 healthy diet and exercise discussed with pt Mixed anxi ety and depressive disorder 932688785 F41.8 pt stopped venlafaxin e/doing fine without med Smoker 41315423 F17.200 Spinal jassi nosis of lumbar region 74761502 M48.061 As above [id number] MD Mirian Velahalto (Adult Med) [address] [place] [address] 02/14/2020 08:20:53 02/15/2020 09:18:23 Chronic back pain 671849426 G89.29 Had MRI in 2016 which showed small l4-5 central protrusion with mild spinal stenosis .Pt was evaluated by back specialist and h/o back injury at work 2 yrs ago and had settled case per ptpt agreed to go for PT / xray -okpt wants to go back on Tizanidine with mobic /gabapenti n .pt needs letter saying some restrictio ns for community service due to back pain. [id number] MD Amber JOSÉ (SENIOR QUALITY ASSURANCE ANALYST) [address] [place] [address] 05/13/2022 15:13:08 05/15/2022 13:59:38 Screening for malignant neoplasm of cervix 473313729 Z12.4 - Due for co-testing ; collected today Nicotine d ependence with current use 804743666 F17.200 - Encouraged cessation for overall health, as well as reducing risk of cardiovasc ular disease and cancer- Patient interested in nicotine replacemen t; patches prescribed today Body mass index 40+ - severely obese 486111336 Z68.41 - Discussed healthy behaviors, including eating a balanced diet and incorporat ing regular physical activity into day- Provided handout on healthy lifestyle- Will screen for diabetes with A1c Adult [facility] th examination 539651416 Z00.00 - Reviewed risks for cardiovasc ular disease, infection, and cancer; ordered screening tests as appropriat e Menorrhagia 571574828 N9 2.0 - Patient interested in hormonal options to decrease heaviness of menstrual bleeding- Provided Reproducti ve Access handout on hormonal IUD and counseled patient on its indication for heavy menstrual bleeding- Patient to call for appointmen t if interested in IUD; recommende d returning when on period for ease of placement [id number] MD Amber JOSÉ (SENIOR QUALITY ASSURANCE ANALYST) [address] [place] [address] 05/21/2022 15:19:24 05/24/2022 09:56:17 Mass of neck 164562657 R22.1 L03.221 - Suspect infected epidermoid cyst; consider also abscess- Recommende d warm compresses for 20 minutes at a time 3-4 times daily and ibuprofen as needed for pain and inflammati on- Will also treat for superficia l cellulitis with Bactrim- Return to clinic in 1 week for re-evaluat ion and possible cyst excision vs abscess I&D [id number] MD Amber JOSÉ (SENIOR QUALITY ASSURANCE ANALYST) [address] [place] [address] 05/28/2022 15:19:36 05/30/2022 08:59:14 Epidermoid cyst of skin of back 294831963 L72.0 - Partial removal of cyst wall- Patient advised that cyst will likely return; will refer to dermatolog y when that occurs- Return to clinic in 10 days for suture removal [id number] MD Amber JOSÉ (SENIOR QUALITY ASSURANCE ANALYST) [address] [place] [address] 06/17/2022 15:14:49 06/18/2022 14:39:06 Removal of sutures done [id number] 89052 Z48.02 - Sutures removed without incident [id number] MD Amber JOSÉ (SENIOR QUALITY ASSURANCE ANALYST) [address] [place] [address] 02/02/2024 15:40:07 02/06/2024 14:28:07 Sleep apnea 35079031 G47.30 - Suspected THOR with snoring and witnessed apenic episodes- Home sleep study ordered Nicotine d ependence with current use 813031927 F17.200 - Encouraged cessation for overall health, as well as reducing risk of cardiovasc ular disease and cancer- Refilled home nicotine patches 21 mg daily- Recommende d choosing a quit date. Will touch base at annual wellness visit in May Epidermoid cyst of skin of face 496676630 L72.0 - Suspected epidermoid cyst on left side of face- Referred to dermatolog y for further evaluation and treatment [id number] MD Amber JOSÉ (SENIOR QUALITY ASSURANCE ANALYST) [address] [place] [address] 06/03/2024 16:25:38 06/04/2024 11:46:35 Chronic back pain 129265684 M54.9 - Discussed importance of pain control for the next 2 weeks. Medication s for multimodal pain control prescribed as below. Recommende d also over-the-c ounter lidocaine patches for 12 hours nightly. Recommende d TENS unit use with cheat sheet on pad placement given to patient.- Patient unable to go to physical therapy at this time- Return to clinic in 2-4 weeks for re-evaluat ion Positive s creening for depression on PHQ-9 (Patient Health Questionnaire 9) 0194723413 35414 Z13.31 - Reports high score due to losing job and being stressed about finances [id number] MD Amber JOSÉ (SENIOR QUALITY ASSURANCE ANALYST) [address] [place] [address] 06/24/2024 14:18:25 06/29/2024 14:20:21 Human papillomavirus deoxyribonucleic acid detected, high risk on cervical specimen 752569946 Z12.4 - Due for co-testing ; collected today Obese class II [id number] 1 23849 E66.812 - Provided handout on healthy lifestyle- F/u TSH and A1c to rule out thyroid disease and diabetes/p rediabetes Obstructiv e sleep apnea syndrome 83801936 G47.33 E66.812 Z68.39 - THOR on CPAP- Zepbound ordered to further improve THOR, as well as gain additional benefits of weight loss and management of dyslipidem ia (high VLDL and low HDL on 05/2022). Discussed side effects, R/B/A. No absolute contraindi cations to medication (medullary thyroid cancer or MEN2 syndrome). RTC in 4 weeks to evaluate tolerance to medication . General ex amination of patient 371667421 Z00.00 - Reviewed risks for cardiovasc ular disease, infection, and cancer; ordered screening tests as appropriat e Health Concerns Section Related Observation LastModified by Organization Detai ls LastModified Time None Recorded Concern Status LastModified by Organization Details LastModified Time None Recorded Advance Directives Directive N: Payers Insurance Date Sequence Insurance Name Policy Number Policy Ames Covered Member ID Ames Member ID Guarantor Name 07/20/2024 1 [facility] (MEDICAID HMO) [id number] Pao McCjamison [id number] Pao Klarissa Notes Date Note Type Note Provider Name and Address Organization Details Recorded Time 05/28/2022 text/html Back nodule- Has been using warm compresses and taking hot showers- Feels like the nodule is coming to a head- Almost done with antibiotic course- Mostly has discomfort when laying down due to pressure on the nodule- Would like nodule removed today BEBE MAE MD Attn: Accounting,[address] [place], [address], [facility] 05/29/2022 20:29:48 06/17/2022 text/html Suture removal- Epidermoid cyst partially removed 05/28/22- Patient unable to come back within 10 day window due to testing positive for COVID the week of 06/05/22- No concerns about sutures BEBE MAE MD Attn: [address]ing[address] [place], [address], [facility] 06/17/2022 15:55:24 02/02/2024 text/html Sleep apnea conc loan- Boyfriend has noticed increasing snoring regardless of position the whole night- Has also noticed times when she stops breathing; has occurred over past year STOP BANG Questionnaire- Snoring? - Do you snore loudly? yes (+1)- Tired? - Do you often feel tired, fatigued, or sleepy during the day? no (+0)- Observed? - Has anyone observed you stop breathing during sleep? yes (+1)- Pressure? - Do you have (or are you being treated for) high blood pressure? no (+0)- BMI: >35kg/m^2(+1)- Age: 52 yo (+0)- Neck circumference (measured around Meza apple): 40 cm (+0) (39.5 cm)- Gender: F (+0)Total: +3Score interpretation: 3 to 4 - Intermediate risk of OSAorhigh risk of THOR if: 1) [x] Yes to 2 or more STOP questions,AND 2) [] male gender OR [x] BMI> 35kg/m^2 OR [] neck circumference at least 16 inches / 40 cm Skin concern- Has a bump on the left side of her face- Started looking like a pimple and has grown over the past 3 months Smoking- Has been trying to quit- Uses nicotine patches intermittently- Does not have a quit date yet BEBE MAE MD Attn: [address] [place], [address], [facility] 02/03/2024 10:27:45 06/03/2024 text/html Back pain- Back pain started 2 months ago. No known triggers or injury.- Has been doing stretches- Bought a new bed- Using heating pads, TENS unit (places over SI joints bilaterally; has one unit with 2 pads, one unit with 4 pads), Biofreeze (lidocaine), Tylenol (2-3 extra strength; initially was using 3-4 times per day but stopped due to ineffectiveness), ibuprofen (800 mg, initially once a day).- Got 2 shots (one of which was a steroid) at urgent care, which helped for a couple of days- Pain is constant. Boyfriend states she is crying and moaning in sleep at night. Wakes up out of sleep due to pain.- Pain is worst very low where spine meets my tailbone and feels like popping out of place. Has been spreading to mid-thoracic area. Initially had numbness and tingling down left leg, now both legs and buttocks are involved.- Currently works as a research librarian. Stands all day.- Nothing takes the edge off. Sometimes improves with bending forward.- Last time she did physical therapy was a long time ago, more than 5 years ago.- No urinary incontinence or saddle anesthesia BEBE MEA MD Attn: [address]ing[address] , [place], [address], [facility] 06/03/2024 17:57:14 06/24/2024 text/html Annual wellnessConcerns today- Taking new OTC vitamins and wants to check that she's taking the right doses Cardiovascular risk- HTN: No known FHx.- DM2: No known FHx.- HLD: No known FHx. HDL 31, LDL 99, VLDL 46 (05/2022).- Personal history of MD, CVA? No- Family history of MD, CVA? FHx of MD in maternal grandfather at age 69. Infection risk- Prior testing for HIV? Yes - neg in - Prior testing for HepC? Unsure- History of STIs? +hr-HPV (not type 16 or 18)- Vaccines due? COVID, flu, HPV (optional) Plans for - S/p tubal ligation in 2011 Cancer screenings- Breast cancer: No known FHx.- Cervical cancer: Last screening 12/2012 -- NILM. 05/2022 -- NILM, +hr-HPV (not 16 or 18)- Colon cancer: No known FHx.- Lung cancer: Current smoker -- 1 ppd x 21 years (age 16-present). BEBE MAE MD Attn: [address]ing[address] , [place], [address], [facility] 06/28/2024 15:19:08 OBGyn Episode Ob Episode Information Episode Created Date Number of Fetuses Patient Bloodtype Patient rh Status Prepregnancy Weight lbs Domestic Partner Domestic Partner Phone Father Name Hostler Helper Status 08/19/19 18 1 CLOSED Fetus Data First Name Last Name Admitted to NICU Weight (g) Sex Living Outcome Pediatric Complications Fetus ID Race Codes Race Delivery Type F [id number] Gerard Calculation Initial Gerard Date Initial Exam Date Initial Exam Provider Initial Ultrasound Date Last Menstrual Period Date Ultra Sound Weeks Gestation 0 Eighteen To Twenty Week Gerard Update Ultra Sound Date Fundal Height At Umbil Quickening Date Ultra Sound Latest Weeks Gestation Final Gerard Confirmed By Final Gerard Confirmed Date Final Gerard Date Ultra Sound Latest Days Gestation 0 0 Menstrual History Last Menstrual Date Menses Monthly On Bcp Conception Prior Menses Frequency Hcg Plus Date Menarche Onset Age Delivery Information Delivery Date Delivery Type Labor Anesthesia Weeks Gestation Incision Type Labor Labor Length Hrs Delivered By Post Complications Tubal Sterilization Discharge Date Comments 8 Discharge Information Feeding Method Contraceptive Method Maternal HG B and HCT Levels Ob Episode Information Episode Created Date Number of Fetuses Patient Bloodtype Patient rh Status Prepregnancy Weight lbs Domestic Partner Domestic Partner Phone Father Name Hostler Helper Status 08/19/19 18 1 CLOSED Fetus Data First Name Last Name Admitted to NICU Weight (g) Sex Living Outcome Pediatric Complications Fetus ID Race Codes Race Delivery Type F [id number] Gerard Calculation Initial Gerard Date Initial Exam Date Initial Exam Provider Initial Ultrasound Date Last Menstrual Period Date Ultra Sound Weeks Gestation 0 Eighteen To Twenty Week Gerard Update Ultra Sound Date Fundal Height At Umbil Quickening Date Ultra Sound Latest Weeks Gestation Final Gerard Confirmed By Final Gerard Confirmed Date Final Gerard Date Ultra Sound Latest Days Gestation 0 0 Menstrual History Last Menstrual Date Menses Monthly On Bcp Conception Prior Menses Frequency Hcg Plus Date Menarche Onset Age Delivery Information Delivery Date Delivery Type Labor Anesthesia Weeks Gestation Incision Type Labor Labor Length Hrs Delivered By Post Complications Tubal Sterilization Discharge Date Comments 0 Discharge Information Feeding Method Contraceptive Method Maternal HG B and HCT Levels Ob Episode Information Episode Created Date Number of Fetuses Patient Bloodtype Patient rh Status Prepregnancy Weight lbs Domestic Partner Domestic Partner Phone Father Name Hostler Helper Status 08/19/19 18 1 CLOSED Fetus Data First Name Last Name Admitted to NICU Weight (g) Sex Living Outcome Pediatric Complications Fetus ID Race Codes Race Delivery Type M [id number] Gerard Calculation Initial Gerard Date Initial Exam Date Initial Exam Provider Initial Ultrasound Date Last Menstrual Period Date Ultra Sound Weeks Gestation 0 Eighteen To Twenty Week Gerard Update Ultra Sound Date Fundal Height At Umbil Quickening Date Ultra Sound Latest Weeks Gestation Final Gerard Confirmed By Final Egrard Confirmed Date Final Gerard Date Ultra Sound Latest Days Gestation 0 0 Menstrual History Last Menstrual Date Menses Monthly On Bcp Conception Prior Menses Frequency Hcg Plus Date Menarche Onset Age Delivery Information Delivery Date Delivery Type Labor Anesthesia Weeks Gestation Incision Type Labor Labor Length Hrs Delivered By Post Complications Tubal Sterilization Discharge Date Comments 1 Discharge Information Feeding Method Contraceptive Method Maternal HG B and HCT Levels
--- OUTSIDE RECORDS SUMMARY | 2024-08-18 19:37 | XMS_ITS | Continuity of Care Document ---
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 Name Role Phone Gerard PT, CMPT, Rahul Unavailable Sheeba vailable Procedures Procedure Date Progress Note THERAPEUTIC EXERCISES NEUROMUSCULAR RE-ED MANUAL THERAPY FUNC ACTIVITY HOT/COLD PACK ELECTRIC STIMULATION UNATT THERAPEUTIC EXERCISES NEUROMUSCULAR RE-ED MANUAL THERAPY FUNC ACTIVITY THERAPEUTIC EXERCISES NEUROMUSCULAR RE-ED MANUAL THERAPY FUNC ACTIVITY Progress Note THERAPEUTIC EXERCISES NEUROMUSCULAR RE-ED MANUAL THERAPY FUNC ACTIVITY HOT/COLD PACK ELECTRIC STIMULATION UNATT THERAPEUTIC EXERCISES NEUROMUSCULAR RE-ED MANUAL THERAPY FUNC ACTIVITY HOT/COLD PACK THERAPEUTIC EXERCISES NEUROMUSCULAR RE-ED MANUAL THERAPY FUNC ACTIVITY HOT/COLD PACK THERAPEUTIC EXERCISES NEUROMUSCULAR RE-ED MANUAL THERAPY FUNC ACTIVITY HOT/COLD PACK ELECTRIC STIMULATION UNATT THERAPEUTIC EXERCISES NEUROMUSCULAR RE-ED MANUAL THERAPY FUNC ACTIVITY HOT/COLD PACK ELECTRIC STIMULATION UNATT Progress Note THERAPEUTIC EXERCISES NEUROMUSCULAR RE-ED MANUAL THERAPY FUNC ACTIVITY HOT/COLD PACK ELECTRIC STIMULATION UNATT THERAPEUTIC EXERCISES NEUROMUSCULAR RE-ED MANUAL THERAPY FUNC ACTIVITY HOT/COLD PACK ELECTRIC STIMULATION UNATT Progress Note THERAPEUTIC EXERCISES NEUROMUSCULAR RE-ED MANUAL THERAPY FUNC ACTIVITY HOT/COLD PACK ELECTRIC STIMULATION UNATT THERAPEUTIC EXERCISES MANUAL THERAPY FUNC ACTIVITY HOT/COLD PACK ELECTRIC STIMULATION UNATT THERAPEUTIC EXERCISES NEUROMUSCULAR RE-ED MANUAL THERAPY FUNC ACTIVITY HOT/COLD PACK THERAPEUTIC EXERCISES NEUROMUSCULAR RE-ED MANUAL THERAPY FUNC ACTIVITY HOT/COLD PACK THERAPEUTIC EXERCISES NEUROMUSCULAR RE-ED MANUAL THERAPY FUNC ACTIVITY HOT/COLD PACK ELECTRIC STIMULATION UNATT THERAPEUTIC EXERCISES NEUROMUSCULAR RE-ED MANUAL THERAPY FUNC ACTIVITY HOT/COLD PACK ELECTRIC STIMULATION UNATT THERAPEUTIC EXERCISES NEUROMUSCULAR RE-ED MANUAL THERAPY FUNC ACTIVITY HOT/COLD PACK ELECTRIC STIMULATION UNATT Progress Note THERAPEUTIC EXERCISES NEUROMUSCULAR RE-ED MANUAL THERAPY FUNC ACTIVITY THERAPEUTIC EXERCISES NEUROMUSCULAR RE-ED MANUAL THERAPY FUNC ACTIVITY HOT/COLD PACK ELECTRIC STIMULATION UNATT THERAPEUTIC EXERCISES NEUROMUSCULAR RE-ED MANUAL THERAPY FUNC ACTIVITY HOT/COLD PACK ELECTRIC STIMULATION UNATT THERAPEUTIC EXERCISES NEUROMUSCULAR RE-ED MANUAL THERAPY FUNC ACTIVITY HOT/COLD PACK ELECTRIC STIMULATION UNATT PT EVALUATION THERAPEUTIC EXERCISES MANUAL THERAPY HOT/COLD PACK ELECTRIC STIMULATION UNATT Advance Directives Directive Yes / No Effective Date File Name No Information Encounters Encounter Description Practice Location Reason(s) For Visit Diagnoses Date Provider Providers Copied on Encounter [facility] [address], [place], [id number], tel:[phone] [place] No Information 6 Luke Kay. [address] [facility], [facility] [address], [place], [facility], . tel:[phone] [facility] [address], [place], [id number], tel:[phone] [place] No Information 6 Eva Flowers. [address] [facility], [address], [place], [address], [place]. tel:[phone] Referring Provider: Lionel Carter, [address] [facility] [place] [address], [place], [address]. tel:[phone] [facility], [place], [place], [id number], tel:[phone] [place] No Information 6 Roger Nguyen. [address] [place] [address], [address], [place], [place], [facility], . tel: [phone] Referring Provider: [address], [place], [address]. tel:[phone], [id number], tel:[phone] [place] No Information 6 Roger Nguyen. [address] [place] [address], [address], [place], [place], [facility], . tel: [phone] Referring Provider: [address], [place], [address]. tel:[phone] [place] [address], [id number], tel:[phone] [place] No Information 6 Shearer-Jamaal es Rahul. [address] [place] [address], [address], [place], [facility], [place]. tel: [phone] Referring Provider: [address], [place], [address]. tel:[phone] [place] [address], [id number], tel:[phone] [place] No Information 6 Shearer-Jamaal es Rahul. [address] [place] [address], [address], [place], [facility], [place]. tel: [phone] Referring Provider: [address], [place], [address]. tel:[phone], [id number], tel:[phone] [place] No Information 6 Shearer-Jamaal es Rahul. [address] [place] [address], [address], [place], [facility], . tel: [phone] Referring Provider: [address], [place], [address]. tel:[phone], [id number], tel:[phone] [place] No Information 6 Roger Nguyen. [address] [place] [address], [facility] [address], [place], [facility], . tel: [phone] Referring Provider: [address], [place], [address]. tel:[phone], [id number], tel:[phone] [place] No Information 6 Shearer-Jamaal es Rahul. [address] [place] [address], [address], [facility], . tel: [phone] Referring Provider: [address], [place], [address]. tel:[phone], [id number], tel:[phone] [place] No Information 6 Shearer-Jamaal es Rahul. [address] [place] [address], [address], [facility], . tel: [phone] Referring Provider: [address], [place], [address]. tel:[phone], [id number], tel:[phone] [place] No Information 6 Shearer-Jamaal es Rahul. [address] [place] [address], [address], [place], [facility], . tel: [phone] Referring Provider: [address], [place], [address]. tel:[phone], [id number], tel:[phone] [place] No Information 3- 6 Shearer-Jamaal es Rahul. [address] [place] [address], [address], [place], [facility], . tel:[phone] Referring Provider: [address], [place], [address]. tel:[phone], [place], [place], [id number], tel:[phone] [place] No Information 0- 6 Shearer-Jamaal es Rahul. [address] [place] [address], [address], [place], [facility], . tel:[phone] Referring Provider: [address], [place], [address]. tel:[phone], [id number], tel:[phone] [place] No Information 9- 6 Shearer-Jamaal es Rahul. [address] [place] [address], [address], [place], [facility], . tel:[phone] Referring Provider: [address], [place], [address]. tel:[phone], [id number], tel:[phone] [place] No Information 3- 6 Shearer-Jamaal es Rahul. [address] [place] [address], [address], [place], [facility], . tel:[phone] Referring Provider: [address], [place], [address]. tel:[phone] [place] [address], [id number], tel:[phone] [place] No Information May-1 2-201 6 Shearer-Jamaal es Rahul. [address] [place] [address], [address] [place] [address], [facility], . tel: [phone] Referring Provider: Lionel Carter, [address], [place], [address]. tel:[phone] [place] [address], [place], [place], [id number], tel:[phone] [place] No Information May-0 9-201 6 Shearer-Jamaal es Rahul. [address] [place] [address], [facility] [address] [place], [facility], . tel: [phone] Referring Provider: Lionel Carter, [address], [place], [address]. tel:[phone] [place] [address], [id number], tel:[phone] [place] No Information May-0 6-201 6 Shearer-Jamaal es Rahul. [address] [place] [address], [address], [place], [facility], . tel: [phone] Referring Provider: Lionel Carter, [address], [place], [address]. tel:[phone], [id number], tel:[phone] [place] No Information May-0 2-201 6 Shearer-Jamaal es Rahul. [address] [place] [address], [address], [place], [facility], . tel: [phone] Referring Provider: Lionel Carter, [address], [place], [address]. tel:[phone], [id number], tel:[phone] [place] No Information 6 Shearer-Jamaal es Rahul. [address] [place] [address], [facility] [address], [place], [facility], . tel:[phone] Referring Provider: [address], [place], [address]. tel:[phone], [id number], tel:[phone] [place] No Information 6 Shearer-Jamaal es Rahul. [address] [place] [address], [address], [facility], . tel:[phone] Referring Provider: [address], [place], [address]. tel:[phone], [id number], tel:[phone] [place] No Information 6 Shearer-Jamaal es Rahul. [address] [place] [address], [address], [facility], [place]. tel:[phone] Referring Provider: [address], [place], [address]. tel:[phone], [id number], tel:[phone] [place] Low back painDisorder of muscle, unspecifiedStiffness of unspecified joint, not elsewhere classifiedMuscle weakness (generalized)Other intervertebral disc displacement, lumbar region Jun- 6 Shearer-Jamaal es Rahul. [address] [place] [address], [facility], [place], [place], [facility], [place]. tel:[phone] Referring Provider: [address], [place], [address]. tel:[phone] Family History Family Member Type Diagnosis Age At Onset No Information Payers Payer name Insurance type Covered green party ID Authoriza timalou(s) [employer] EPO WC SP [id number] Social History Type Description Quantity Date Captured Comments Sex Female Smoking Status No Information Chief Complaint And Reason For Visit No Information Reason For Referral Reason For Referral No Information History Of Present Illness Encounter Date Complaint History Of Prese nt Illness No Information Functional Status Date Functional Assessmen t No Information Instructions Date Instruction Additional Infor mation No Information Assessments Type Assessment Date No Information Patient Care Teams Name Effective Dates (start - stop) Status Members No Information
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
== END 2024-08-18 20:26 | disposition home or self-care (01) ==
PROVIDERS: Emergency Provider Nurse Practitioner; PCP Family Medicine
DX: S60.212A Contusion of left wrist, initial encounter (principal); V48.6XXA Car passenger injured in noncollision transport accident in traffic accident, initial encounter
CPT/HCPCS: 73110; 99203; G0463

== ENCOUNTER 2024-11-24 08:02 | Emergency (ER) | payer OTHER, SELFPAY ==
[2024-11-24 08:07] VITALS: BP 150/86; PULSE 117; RESP 18; TEMP 36.2; O2SAT 99
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
--- NOTE | 2024-11-24 08:16 | ED.FEMALEGU ---
HPI - Female Genitourinary General Chief complaint: Urogenital-Female Stated complaint: Urinary Problem Time Seen by Provider: 11/24/24 08:16 Source: patient Mode of arrival: ambulatory Limitations: no limitations History of Present Illness HPI Narrative: 39-year-old female presents with complaint of blood in urine, frequency, urgency, decreased output. Symptoms started around 3:00 a.m.. Patient also requesting STI testing. Patient has new partner. Afebrile. All systems reviewed and negative except as noted above. Related Data Allergies Allergy/AdvReac Type Severity Reaction Status Date / Time No Known Allergies Allergy Verified 11/24/24 08:04 PMFSH Comments At time of signature, agree with nursing past medical, surgical, social and family history. There is no relevant family history pertinent to the presenting complaint. Exam Narrative: GENERAL: This is a well-nourished, well-developed patient, in no apparent distress. HEAD: normocephalic, atraumatic. EYES: PERRL. Sclera clear/white. Vision is grossly intact. EARS: External ears normal NOSE: External nose normal NECK: Neck supple, non-tender without lymphadenopathy, masses or thyromegaly. CARDIOVASCULAR: Regular rate and rhythm without murmurs, gallops, or rubs. RESPIRATORY: Clear to auscultation. Breath sounds equal bilaterally. No wheezes, rales, or rhonchi. SKIN: warm, Dry, intact with no suspicious lesions or rash, good texture and turgor. NEURO: awake, alert, and oriented to person, place and time. There were no obvious focal neurologic abnormalities. EXTREMITIES: No joint tenderness, effusion, or edema noted. Course Course Level of Care: Express Care Visit Vital Signs Vital signs: Vital Signs Temperature 36.2 C L 11/24/24 08:07 Pulse Rate 117 H 11/24/24 08:07 Respiratory Rate 18 11/24/24 08:07 Blood Pressure 150/86 H 11/24/24 08:07 Pulse Oximetry 99 11/24/24 08:07 Oxygen Delivery Room Air 11/24/24 08:07 Temperature 36.2 C L 11/24/24 08:07 Pulse Rate 117 H 11/24/24 08:07 Respiratory Rate 18 11/24/24 08:07 Blood Pressure 150/86 H 11/24/24 08:07 Pulse Oximetry 99 11/24/24 08:07 Oxygen Delivery Room Air 11/24/24 08:07 Reviewed MDM - Female Genitourinary MDM Narrative Medical decision making narrative: unable to complete urinalysis due to blood and urine. Will send urine culture. Will treat patient with Augmentin due to patient's urinary symptoms. Patient requesting STI testing but does not want treatment Until results completed. Patient is well-appearing, nontoxic. Differential Diagnosis Differential diagnosis: Likely urinary tract infection Discharge Plan Discharge Clinical Impression: Urinary tract infection Patient Disposition: Home Condition: Stable Instructions: Antibiotic Form, Urinary Tract Infection in Women (ED) Additional Instructions: Take antibiotics as prescribed until gone. Drink at least 64 oz of water a day. You were tested for gonorrhea, chlamydia and Trichomonas today. Results will take 48-72 hours. Follow-up with your doctor if symptoms are not improving. Patient Language: Swazi Prescriptions: New amoxicillin-pot clavulanate [Augmentin] 500-125 mg tablet 1 tablet PO BID 5 Days Qty: 10 0RF phenazopyridine [Pyridium] 200 mg tablet 200 mg PO TID PRN (Reason: pain) 3 Days Qty: 10 0RF Follow-up/Referrals: PHYSICIAN,REINFORCING IRON WORKER HELPER [Primary Care Provider, Internal Medicine] Time of Disposition: 08:21
[2024-11-24 20:04] LABS: Trichomonas Vag PCR NOT DETECTED (NOT DETECTE)
== END 2024-11-24 08:32 | disposition home or self-care (01) ==
PROVIDERS: Emergency Provider Nurse Practitioner Family
DX: N39.0 Urinary tract infection, site not specified (principal); Z11.3 Encounter for screening for infections with a predominantly sexual mode of transmission
CPT/HCPCS: 87077; 87086; 87186; 87491; 87591; 87661; 99213; G0463